=== PATIENT | female | born 1985 | race Caucasian/White ===

== ENCOUNTER 2019-05-08 14:40 | Emergency (ER) | payer SELFPAY ==
[~2019-05-08] VITALS: Wt 68.0 kg
[~2019-05-08 14:40] MED LIST: ANAPROX DS550 MG PO; CIPROFLOXACIN500 MG PO; NKHM
== END 2019-05-08 16:07 | disposition home or self-care (01) ==
LOC: ED 14:40
DX: S01.81XA Laceration without foreign body of other part of head, initial encounter (principal); S00.12XA Contusion of left eyelid and periocular area, initial encounter; S00.11XA Contusion of right eyelid and periocular area, initial encounter; W22.03XA Walked into furniture, initial encounter; Y93.89 Activity, other specified; Y92.89 Other specified places as the place of occurrence of the external cause; Y99.8 Other external cause status

== ENCOUNTER 2022-09-10 15:41 | Emergency (ER) | payer SELFPAY ==
[~2022-09-10] VITALS: Ht 165.1 cm; Wt 65.8 kg
== END 2022-09-10 16:41 | disposition home or self-care (01) ==
LOC: ED 15:41
DX: K11.20 Sialoadenitis, unspecified (principal)